=== PATIENT | male | born 1960 | race Caucasian/White ===

== ENCOUNTER 2016-08-08 11:46 | Emergency (ER) ==
[2016-08-08 11:50] VITALS: BP 145/99; TEMP 99.7; BMI 47.4
[2016-08-08] MEDS ORDERED: NORCO 10-325 PO STA (12:15)
--- NOTE | 2016-08-08 13:06 | DI ---
Examination: Single radiographic image of the pelvis. Comparison: Right hip films performed on the same day. Reason for study: Pain. FINDINGS: No acute fracture or dislocation. The joint spaces are well maintained. No obvious bird ical irregularity or malalignment. Impression: No acute fracture or dislocation is seen within the pelvis.
--- NOTE | 2016-08-08 13:06 | DI ---
Examination: Two radiographic images of the right hip. Reason for study: Pain. Comparison: Radiographs performed on the same day. Findings: No acute fracture or dislocation. The right femoral head articulates with the acetabulum. No obvio us cortical irregularity or malalignment. Impression: No acute fracture or dislocation in the right hip.
--- NOTE | 2016-08-08 13:07 | DI ---
Exam: Right lower leg two-view History: Neck pain Findings / impression: No bony abnormalities of the right lower leg. Venous stasis calcifications of the soft tissues. Edematous change of the subcutaneous fat suggested.
--- NOTE | 2016-08-08 14:30 | DI ---
EXAM: Four views of the right knee HISTORY: Right knee pain. COMPARISON: Right lower extremity x-ray 08/08/2016 FINDINGS: There is medial compartmental narrowing and mild osteophyte formation. The lateral compar tment space is normal with mild osteophyte formation. The patella demonstrates osteophytes. The so ft tissues are unremarkable. There is mild narrowing in the patellofemoral compartment. No displace d fracture or dislocation is identified. 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
--- NOTE | 2016-08-08 15:53 | ED.PDOC ---
General ED Provider: Dr. GEOFFREY OSCAR Chief Complaint: Knee Pain/Injury Stated Complaint: knee pain Time Seen by Physician: 12:00 (twisted the knee ) Mode of Arrival: Walk-In Information Source: Patient Exam Limitations: No limitations Primary Care Provider: YASMINE DE LOS SANTOS Nursing and Triage Documentation Reviewed and Agree: Yes Review of Systems - Review Of Systems Constitutional: Reports: No symptoms Eyes: Reports: No symptoms Ears, Nose, Mouth, Throat: Reports: No symptoms Respiratory: Reports: No symptoms Cardiac: Reports: No symptoms GI: Reports: No symptoms : Reports: No symptoms Musculoskeletal: Reports: Joint pain (knee pain) Skin: Reports: No symptoms Neurological: Reports: No symptoms Endocrine: Reports: No symptoms Hematologic/Lymphatic: Reports: No symptoms All Other Systems: Reviewed and Negative Past Medical History - Past Medical History Previously Healthy: No Endocrine: Reports: None Cardiovascular: Reports: None Respiratory: Reports: None Hematological: Reports: None Gastrointestinal: Reports: None Genitourinary: Reports: None Neuro/Psych: Reports: None Musculoskeletal: Reports: None, Joint Pain Cancer: Reports: None - Surgical History General Surgical History: Reports: None - Family History Family History: Reports: Unknown - Social History Smoking Status: Never smoker Hx Substance Use: No Alcohol Screening: None Physical Exam - Physical Exam Appearance: Well-appearing, No pain distress, Well-nourished Eyes: HEATHER, EOMI, Conjunctiva clear ENT: Ears normal, Nose normal, Oropharynx normal Respiratory: Airway patent, Breath sounds clear, Breath sounds equal, Respirations nonlabored Cardiovascular: RRR, Pulses normal, No rub, No murmur GI/: Soft, Nontender, No masses, Bowel sounds normal, No Organomegaly Musculoskeletal: Limited ROM (right knee ) Skin: Warm, Dry, Normal color Neurological: Sensation intact, Motor intact, Reflexes intact, Cranial nerves intact, Alert, Oriented Psychiatric: Affect appropriate, Mood appropriate Critical Care Note - Critical Care Note Total Time (mins): 0 Course - Course Orders, Labs, Meds: Orders Category Date Time Status Hydrocodone Bit/Acetaminophen [Darling 10-325] MEDS 08/08/16 12:15 Discontinued 1 tab PO ONCE STA HIP, RIGHT 2 VIEWS Stat RADS 08/08/16 12:13 Completed KNEE, RIGHT 4 VIEWS Stat RADS 08/08/16 14:01 Completed PELVIS 1 OR 2 VIEWS Stat RADS 08/08/16 12:13 Completed TIBIA/FIBULA, RIGHT 2 VIEW Stat RADS 08/08/16 12:13 Completed U/S VENOUS SCAN NORBERTO LEGS Stat RADS 08/08/16 15:11 Ordered Medications Discontinued Medications Generic Name Dose Route Start Last Admin Trade Name Freq PRN Reason Stop Dose Admin Acetaminophen/Hydrocodone Bitart 1 tab 08/08/16 12:15 08/08/16 13:01 Darling 10-325 PO 08/08/16 12:16 1 tab ONCE STA Administration Vital Signs: Temp Pulse Resp BP Pulse Ox 08/08/16 11:46 99.7 F H 80 24 145/99 H 92 L Departure - Departure Time of Disposition: 15:52 Disposition: HOME SELF-CARE Discharge Problem: Knee pain Condition: Good Pt referred to PMD for follow-up: No Allergies/Adverse Reactions: Allergies No Known Allergies Allergy (Verified 08/08/16 11:50) Home Medications: Ambulatory Orders Hydrocodone/Acetaminophen [Darling 5-325 Tablet] 1 each PO Q6HR PRN #14 tablet 12/17
--- NOTE | 2016-08-08 16:04 | US ---
EXAM: Bilateral lower extremity venous doppler. HISTORY: Bilateral leg pain. COMPARISON: None available. TECHNIQUE: Multiple grayscale and color doppler images were obtained. FINDINGS: There is normal flow, compressibility and augmentation of flow within the right and left common femoral, greater saphenous, profunda, femoral, popliteal, posterior tibial, anterior tibial a nd peroneal veins. IMPRESSION: No evidence for right or left lower extremity deep vein thrombosis at the levels examined.
== END 2016-08-08 16:14 | disposition home or self-care (01) ==
LOC: ED 11:46
DX: M25.561 Pain in right knee (principal); X50.1XXA Overexertion from prolonged static or awkward postures, initial encounter
CPT/HCPCS: 99283

== ENCOUNTER 2017-06-28 16:12 | Outpatient (CLI) ==
[2017-06-28 17:16] LABS: FLU INTERNAL QC INTERNAL QC VALID; MOLECULAR FLU A NEGATIVE BY NAAT (NEGATIVE); MOLECULAR FLU B NEGATIVE BY NAAT (NEGATIVE)
== END 2017-06-28 16:13 | disposition home or self-care (01) ==
LOC: LAB 16:12
PROVIDERS: ATTEND Nurse Practitioner Family
DX: R05 Cough (principal); R50.9 Fever, unspecified
CPT/HCPCS: 87502

== ENCOUNTER 2017-07-04 11:05 | Outpatient (CLI) ==
--- NOTE | 2017-07-04 12:08 | DI ---
EXAM: Chest two view, frontal and lateral views. HISTORY: Bronchitis. COMPARISON: 04/20/2013. FINDINGS: Heart size is normal. There is no vascular congestion. Linear opacity seen at the right base. The lungs otherwise clear without pleural effusion or pneumothorax. There is anterior wedging of lower thoracic and upper lumbar vertebral bodies. Clips seen in the upper abdomen. IMPRESSION: Mild right basilar subsegmental atelectasis.
== END 2017-07-04 11:06 | disposition home or self-care (01) ==
LOC: RAD 11:05
PROVIDERS: ATTEND Nurse Practitioner Family
DX: J02.9 Acute pharyngitis, unspecified (principal); R50.9 Fever, unspecified; J40 Bronchitis, not specified as acute or chronic; K21.9 Gastro-esophageal reflux disease without esophagitis
CPT/HCPCS: 87502; 87651

== ENCOUNTER 2018-03-24 11:49 | Emergency (ER) | payer OTHER ==
[2018-03-24 11:52] VITALS: BP 121/79; TEMP 97.7; BMI 45.0
--- NOTE | 2018-03-24 12:04 | ED.PDOC ---
General ED Provider: Dr. NAYA BRITO Chief Complaint: Extremity Pain/Injury Stated Complaint: Patient states that he noticed redness on the left leg for few days. Looked like when he had cellultis and improved with Antibiotics (shot of Rocephin and po antibitis) Denies any pain or tenderness to palpation. He also accidentally had a log hit his right 4th digit. Time Seen by Physician: 12:02 Mode of Arrival: Walk-In Information Source: Patient Primary Care Provider: YASMIEN DE LOS SANTOS Nursing and Triage Documentation Reviewed and Agree: Yes Does patient meet sepsis criteria?: No System Inflammatory Response Syndrome: Not Applicable Sepsis Protocol: For patient's 13 years and over: Temp is 96.8 and below OR 101 and greater Pulse >90 BPM Resp >20/minute Acutely Altered Mental Status Are patient's symptoms suggestive of a new infection, such as: -Pneumonia -Skin, Soft Tissue -Endocarditis -UTI -Bone, Joint Infection -Implantable Device -Acute Abdominal Infection -Wound Infection -Meningitis -Blood Stream Catheter Infection -Unknown Skin Complaint Exam - Skin/Soft Tissue Complaint/Exam Onset/Duration: 10 days Symptoms Are: Still present Timing: Constant Initial Severity: Mild Current Severity: Mild Location: left lower leg rene area Character: Reports: Redness Aggravating: Reports: None Alleviating: Reports: None Associated Signs and Symptoms: Reports: Red streaks Related History: Reports: Similar episode (Prior cellulitis ) Recent Exposure to Others w/Similar Symptoms: No Skin Findings: Present: Erythema Differential Diagnoses: Cellulitis - Laceration/Abrasion/Hand Complaint/Exam Location of Injury: Left, Hand, Digit #4 Mechanism of Injury: Abrasion, Blunt trauma Onset/Duration: just prior to arrival. Symptoms Are: Still present Initial Severity: Moderate Current Severity: Mild Aggravating: Movement Alleviating: None Associated Signs and Symptoms: Denies: Fever, Chills, Erythema, Numbness, Tingling Related History: Reports: Right hand dominant Hand Picture: 1 - skin abrassion Differential Diagnoses: Abrasion Review of Systems - Review Of Systems Constitutional: Reports: No symptoms Eyes: Reports: No symptoms Ears, Nose, Mouth, Throat: Reports: No symptoms Respiratory: Reports: No symptoms Cardiac: Reports: No symptoms GI: Reports: No symptoms : Reports: No symptoms Musculoskeletal: Reports: No symptoms Skin: Reports: Bruising, Rash Neurological: Reports: No symptoms Endocrine: Reports: No symptoms Hematologic/Lymphatic: Reports: No symptoms All Other Systems: Reviewed and Negative Past Medical History - Past Medical History Previously Healthy: No Endocrine: Reports: None Cardiovascular: Reports: None Respiratory: Reports: None Hematological: Reports: None Gastrointestinal: Reports: None Genitourinary: Reports: None Neuro/Psych: Reports: None Musculoskeletal: Reports: None, Joint Pain Cancer: Reports: None - Surgical History General Surgical History: Reports: None - Family History Family History: Reports: Unknown - Social History Smoking Status: Never smoker Hx Substance Use: No Alcohol Screening: None - Immunizations Tetanus Shot up to Date: No Physical Exam - Physical Exam Appearance: Ill-appearing, No pain distress, Obese Ill-appearing: Mild Neck: Supple Respiratory: Airway patent, Breath sounds clear, Breath sounds equal, Respirations nonlabored Cardiovascular: RRR, Pulses normal, No rub, No murmur Musculoskeletal: Normal strength, Limited ROM (Left hand at the 4th metacarpal due to pain ) Skin: Warm, Dry Neurological: Sensation intact, Alert, Oriented Psychiatric: Affect appropriate, Mood appropriate Critical Care Note - Critical Care Note Total Time (mins): 0 Course - Course Hematology/Chemistry: 03/24/18 13:00 03/24/18 13:00 Orders, Labs, Meds: Lab Review 03/24/18 03/24/18 13:00 13:00 WBC 9.72 RBC 4.80 Hgb 14.2 Hct 42.7 MCV 89.0 MCH 29.6 MCHC 33.3 RDW Coeff of Parris 13.7 Plt Count 272 Immature Gran % (Auto) 0.4 Neut % (Auto) 67.0 Lymph % (Auto) 19.0 [place] % (Auto) 6.7 Eos % (Auto) 6.6 Baso % (Auto) 0.3 Immature Gran # (Auto) 0.0 Neut # (Auto) 6.5 Lymph # (Auto) 1.9 [place] # (Auto) 0.7 Eos # (Auto) 0.6 Baso # (Auto) 0.0 Sodium 138.6 Potassium 4.43 Chloride 100.4 Carbon Dioxide 32.9 H Anion Gap 9.73 BUN 15.5 Creatinine 0.95 Estimated GFR (MDRD) 82.00 BUN/Creatinine Ratio 16.31 Glucose 94.7 Calcium 10.06 Total Bilirubin 0.55 AST 22.6 ALT 20.3 Alkaline Phosphatase 110.5 Total Protein 7.55 Albumin 4.02 Globulin 3.53 Albumin/Globulin Ratio 1.13 Orders Category Date Time Status CBC W/ AUTO DIFF Stat LAB 03/24/18 13:00 Completed COMPREHENSIVE METABOLIC PANEL Stat LAB 03/24/18 13:00 Completed Ceftriaxone Sodium [Rocephin] MEDS 03/24/18 12:05 Discontinued 1 gm IM ONCE STA Lidocaine HCl/Pf [Lidocaine HCl 1% Sdv] MEDS 03/24/18 12:05 Discontinued 2.1 ml IM ONCE STA HAND, LEFT 3 VIEWS Stat RADS 03/24/18 12:05 Completed Medications Discontinued Medications Generic Name Dose Route Start Last Admin Trade Name Freq PRN Reason Stop Dose Admin Ceftriaxone Sodium 1 gm 03/24/18 12:05 03/24/18 12:44 Rocephin IM 03/24/18 12:06 1 gm ONCE STA Administration Lidocaine HCl 2.1 ml 03/24/18 12:05 03/24/18 12:45 Lidocaine Hcl 1% Sdv IM 03/24/18 12:06 2.9 ml ONCE STA Administration Vital Signs: Temp Pulse Resp BP Pulse Ox 03/24/18 11:49 97.7 F 92 H 20 121/79 94 L Departure - Departure Time of Disposition: 13:02 Disposition: HOME SELF-CARE Discharge Problem: Lower extremity cellulitis Qualifiers: Laterality: left Qualified Code(s): L03.116 - Cellulitis of left lower limb Hand injuries Qualifiers: Encounter type: initial encounter Laterality: left Qualified Code(s): S69.92XA - Unspecified injury of left wrist, hand and finger(s), initial encounter Instructions: Cellulitis (ED), Abrasion (ED) Condition: Fair Pt referred to PMD for follow-up: Yes IPMP verified?: No Additional Instructions: take medications as prescribed Follow up with PCP in 3 days Prescriptions: Cephalexin [Keflex] 500 mg PO Q8HR #30 capsule Allergies/Adverse Reactions: Allergies No Known Allergies Allergy (Verified 03/24/18 11:52) Home Medications: Ambulatory Orders Cephalexin [Keflex] 500 mg PO Q8HR #30 capsule 03/24/18 Disposition Discussed With: Patient, Family
[2018-03-24] MEDS ORDERED: LIDOCAINE HCL 1% SDV IM STA (12:05)
[2018-03-24] MEDS ORDERED: ROCEPHIN IM STA (12:05)
--- NOTE | 2018-03-24 12:32 | DI ---
Exam: Three views of the left hand. Comparison: 04/22/2010. Reason for exam: Trauma to the fourth metacarpal. FINDINGS: Operative changes are seen in the left first metacarpal. No acute fracture or malalignmen t. The joint spaces appear well maintained. No unexplained calcific soft tissue density or radiopaq ue retained foreign body. Impression: No acute fracture or dislocation is seen in the left hand.
== END 2018-03-24 14:09 | disposition home or self-care (01) ==
LOC: ED 11:49
DX: L03.116 Cellulitis of left lower limb (principal); S69.92XA Unspecified injury of left wrist, hand and finger(s), initial encounter; W22.8XXA Striking against or struck by other objects, initial encounter
CPT/HCPCS: 36415; 80053; 85025; 96372; 99283

== ENCOUNTER 2018-05-10 12:15 | Outpatient (CLI) ==
--- NOTE | 2018-05-10 14:24 | US ---
EXAM: Left lower extremity venous Doppler for venous insufficiency. History: Left lower extremity pain and swelling with skin discoloration Technique: Multiple sonographic images through the left lower extremity were obtained. Color duplex Doppler was used to interrogate vascular flow. Findings: The left common femoral, greater saphenous, profunda, femoral, and popliteal veins demonstrate sponta neous flow with normal compression and normal augmentation. Greatest diameter of the left greater saphenous vein was 0.50 cm in the proximal thigh. No venous ref lux was identified. The left lesser saphenous vein was not identified probably due to patient's body habitus. 5.7 cm x 1.4 cm x 1.4 cm collection of fluid within the left popliteal fossa. Impression: 1. No sonographic evidence for deep venous thrombosis. 2. No venous reflux identified involving the left greater saphenous vein. 3. The lesser saphenous vein was not identified. 4. Left Huff's cyst
== END 2018-05-10 12:16 | disposition home or self-care (01) ==
LOC: RAD 12:15
PROVIDERS: ATTEND Nurse Practitioner Family
DX: I87.2 Venous insufficiency (chronic) (peripheral) (principal); M79.89 Other specified soft tissue disorders; R53.83 Other fatigue; R00.0 Tachycardia, unspecified; E66.9 Obesity, unspecified; Z12.5 Encounter for screening for malignant neoplasm of prostate
CPT/HCPCS: 36415; 80053; 80061; 82306; 82607; 83880; 84443; 85025; 93005; 93010

== ENCOUNTER 2018-09-15 10:49 | Emergency (ER) | payer MEDICAID, OTHER ==
[2018-09-15 10:57] VITALS: BP 150/95; TEMP 98.2; BMI 34.0
--- NOTE | 2018-09-15 11:57 | ED.PDOC ---
General ED Provider: Dr. LADY PURCELL Chief Complaint: Extremity Swelling/Pain Stated Complaint: vasculitis,lower legs Time Seen by Physician: 10:50 Mode of Arrival: Walk-In Information Source: Patient Exam Limitations: No limitations Primary Care Provider: VIDAL MORA Nursing and Triage Documentation Reviewed and Agree: Yes Does patient meet sepsis criteria?: No System Inflammatory Response Syndrome: Not Applicable Sepsis Protocol: For patient's 13 years and over: Temp is 96.8 and below OR 101 and greater Pulse >90 BPM Resp >20/minute Acutely Altered Mental Status Are patient's symptoms suggestive of a new infection, such as: -Pneumonia -Skin, Soft Tissue -Endocarditis -UTI -Bone, Joint Infection -Implantable Device -Acute Abdominal Infection -Wound Infection -Meningitis -Blood Stream Catheter Infection -Unknown Skin Complaint Exam - Skin/Soft Tissue Complaint/Exam Onset/Duration: few days Symptoms Are: Still present Timing: Constant Initial Severity: Moderate Current Severity: Mild Character: Reports: Redness, Swelling, Raised Aggravating: Reports: Heat Alleviating: Reports: Cold, Medications Associated Signs and Symptoms: Reports: Tenderness, Red streaks Related History: Reports: Recent Med change Recent Exposure to Others w/Similar Symptoms: No Skin Findings: Present: Erythema, Induration Joint Tenderness Present: No Differential Diagnoses: Lymphadenitis, Lymphangitis, Other Review of Systems - Review Of Systems Constitutional: Reports: No symptoms Eyes: Reports: No symptoms, Glasses Ears, Nose, Mouth, Throat: Reports: No symptoms Respiratory: Reports: No symptoms Cardiac: Reports: No symptoms, Lightheadedness GI: Reports: No symptoms : Reports: No symptoms Musculoskeletal: Reports: No symptoms Skin: Reports: No symptoms, Lesions Neurological: Reports: No symptoms Endocrine: Reports: No symptoms Hematologic/Lymphatic: Reports: No symptoms All Other Systems: Reviewed and Negative Past Medical History - Past Medical History Previously Healthy: No Endocrine: Reports: None Cardiovascular: Reports: None Respiratory: Reports: None Hematological: Reports: None Gastrointestinal: Reports: None Genitourinary: Reports: None Neuro/Psych: Reports: None Musculoskeletal: Reports: None, Joint Pain Cancer: Reports: None - Surgical History General Surgical History: Reports: None - Family History Family History: Reports: Unknown - Social History Smoking Status: Never smoker Hx Substance Use: No Alcohol Screening: None Physical Exam - Physical Exam Appearance: Well-appearing Ill-appearing: None Pain Distress: None Eyes: HEATHER ENT: Ears normal Respiratory: Airway patent Cardiovascular: RRR Musculoskeletal: Normal strength Skin: Warm Neurological: Sensation intact Critical Care Note - Critical Care Note Total Time (mins): 0 Course - Course Vital Signs: Temp Pulse Resp BP Pulse Ox 09/15/18 10:50 98.2 F 84 20 150/95 H 94 L Departure - Departure Time of Disposition: 12:04 Disposition: HOME SELF-CARE Discharge Problem: Edema of the upper extremity Instructions: Purpura (ED) Condition: Good Pt referred to PMD for follow-up: Yes IPMP verified?: No Allergies/Adverse Reactions: Allergies No Known Allergies Allergy (Verified 09/15/18 10:59) Disposition Discussed With: Patient
== END 2018-09-15 12:44 | disposition home or self-care (01) ==
LOC: ED 10:49
DX: R60.0 Localized edema (principal)
CPT/HCPCS: 99282

== ENCOUNTER 2019-01-26 19:16 | Emergency (ER) ==
[2019-01-26 19:27] VITALS: BP 127/79; TEMP 98.7; BMI 47.2
[2019-01-26] MEDS ORDERED: TENIVAC IM ONE (20:44)
[2019-01-26] MEDS ORDERED: BACTROBAN OINTMENT 1 GRAM APPLICATOR (ER) TP STA (20:46)
--- NOTE | 2019-01-26 20:46 | ED.PDOC ---
General ED Provider: Dr. ASHLI DAILY-ER Chief Complaint: Puncture Wound Stated Complaint: i accidentally stabbed my hand Time Seen by Physician: 20:44 Mode of Arrival: Walk-In Information Source: Patient Exam Limitations: No limitations Primary Care Provider: VIDAL MORA Nursing and Triage Documentation Reviewed and Agree: Yes Does patient meet sepsis criteria?: No System Inflammatory Response Syndrome: Not Applicable Sepsis Protocol: For patient's 13 years and over: Temp is 96.8 and below OR 101 and greater Pulse >90 BPM Resp >20/minute Acutely Altered Mental Status Are patient's symptoms suggestive of a new infection, such as: -Pneumonia -Skin, Soft Tissue -Endocarditis -UTI -Bone, Joint Infection -Implantable Device -Acute Abdominal Infection -Wound Infection -Meningitis -Blood Stream Catheter Infection -Unknown Skin Complaint Exam - Laceration/Abrasion/Hand Complaint/Exam Location of Injury: Left, Hand Mechanism of Injury: Sharp trauma Onset/Duration: one hour Symptoms Are: Still present Initial Severity: Mild Current Severity: Mild Aggravating: Movement Alleviating: Compression Associated Signs and Symptoms: Denies: Fever, Chills, Erythema, Numbness, Tingling Differential Diagnoses: Laceration, Puncture Wound Review of Systems - Review Of Systems Constitutional: Reports: No symptoms Eyes: Reports: No symptoms Ears, Nose, Mouth, Throat: Reports: No symptoms Respiratory: Reports: No symptoms Cardiac: Reports: No symptoms GI: Reports: No symptoms : Reports: No symptoms Musculoskeletal: Reports: No symptoms Skin: Reports: No symptoms Neurological: Reports: No symptoms Endocrine: Reports: No symptoms Hematologic/Lymphatic: Reports: No symptoms All Other Systems: Reviewed and Negative Past Medical History - Past Medical History Previously Healthy: No Endocrine: Reports: None Cardiovascular: Reports: None Respiratory: Reports: None Hematological: Reports: None Gastrointestinal: Reports: None Genitourinary: Reports: None Neuro/Psych: Reports: None Musculoskeletal: Reports: None, Joint Pain Cancer: Reports: None - Surgical History General Surgical History: Reports: None - Family History Family History: Reports: Unknown - Social History Smoking Status: Former smoker Hx Substance Use: No Alcohol Screening: None - Immunizations Tetanus Shot up to Date: (UNKNOWN) Physical Exam - Physical Exam Appearance: Well-appearing, No pain distress, Well-nourished Eyes: HEATHER, EOMI, Conjunctiva clear ENT: Ears normal, Nose normal, Oropharynx normal Neck: Supple Respiratory: Airway patent, Breath sounds clear, Breath sounds equal, Respirations nonlabored Cardiovascular: RRR, Pulses normal, No rub, No murmur GI/: Soft, Nontender, No masses, Bowel sounds normal, No Organomegaly Musculoskeletal: Normal strength, ROM intact, No edema, No calf tenderness Skin: Warm, Dry, Normal color Neurological: Sensation intact, Motor intact, Reflexes intact, Cranial nerves intact, Alert, Oriented Psychiatric: Affect appropriate, Mood appropriate Critical Care Note - Critical Care Note Total Time (mins): 0 Course - Course Orders, Labs, Meds: Orders Category Date Time Status ED WOUND CARE .ONCE EMERGENCY 01/26/19 20:44 Active Tetanus and Diphtheria Tox/Pf [Tenivac] MEDS 01/26/19 20:44 Once 0.5 ml IM .ONCE ONE Medications Generic Name Dose Route Start Last Admin Trade Name Freq PRN Reason Stop Dose Admin Tetanus/Diphtheria Toxoids Adsorbed 0.5 ml 01/26/19 20:44 Tenivac IM 01/26/19 20:45 .ONCE ONE Vital Signs: Temp Pulse Resp BP Pulse Ox 01/26/19 19:17 98.7 F 74 18 127/79 96 Departure - Departure Time of Disposition: 20:45 Disposition: HOME SELF-CARE Discharge Problem: Puncture wound Instructions: Puncture Wound (ED) Condition: Good Pt referred to PMD for follow-up: Yes IPMP verified?: No Additional Instructions: keep clean and dry---applly triple antbx till healed--return if any signs of infection Allergies/Adverse Reactions: Allergies No Known Allergies Allergy (Verified 01/26/19 19:28) Disposition Discussed With: Patient
== END 2019-01-26 21:09 | disposition home or self-care (01) ==
LOC: ED 19:16
DX: S61.432A Puncture wound without foreign body of left hand, initial encounter (principal); W26.9XXA Contact with unspecified sharp object(s), initial encounter
CPT/HCPCS: 90471; 90714; 99283